=== PATIENT | female | born 1930 | race Caucasian/White ===

== ENCOUNTER 2018-02-11 15:31 | Inpatient (IN) | payer MEDICARE, OTHER ==
[2018-02-11 16:01] LABS: ADD MAN DIFF? NO
[2018-02-11 16:03] LABS: BASOPHILS % 0.4 % (0.0-2.0); EOSINOPHILS # 0.1 10^3/ul (0.0-0.5); EOSINOPHILS % 0.9 % (0.0-7.0); HEMATOCRIT 39.4 % (37.0-47.0); HEMOGLOBIN 12.8 g/dl (12.0-16.0); LYMPHOCYTES # 2.3 10^3/ul (0.8-2.9); MEAN CORPUSCULAR HEMOGLOBIN 28.6 pg (29.0-33.0); MEAN CORPUSCULAR HGB CONC 32.5 g/dl (32.0-37.0); MEAN CORPUSCULAR VOLUME 87.9 fl (82.0-101.0); MEAN PLATELET VOLUME 10.4 fl (7.4-10.4); MONOCYTE # 0.6 10^3/ul (0.3-0.9); MONOCYTES % 6.9 % (0.0-11.0); NEUTROPHILS % 66.4 % (39.0-77.0); PLATELET COUNT 281 10^3/UL (140-415); RED BLOOD COUNT 4.48 10^6/ul (4.20-5.40); RED CELL DISTRIBUTION WIDTH 14.5 % (11.5-14.5)
[2018-02-11 16:32] LABS: ANION GAP 13 (8-16); BLOOD UREA NITROGEN 14 mg/dl (7-20); CALCIUM 9.3 mg/dl (8.4-10.2); CARBON DIOXIDE 23 mmol/L (21-31); CHLORIDE 109 mmol/L (97-110); CREATININE 0.66 mg/dl (0.44-1.00); GLUCOSE 146 mg/dl (70-220); POTASSIUM 3.4 mmol/L (3.5-5.1); SODIUM 142 mmol/L (135-144)
[2018-02-11 16:44] LABS: TROPONIN-I 0.058 ng/ml (0.000-0.120)
[2018-02-11] MEDS: ONDANSETRON 4 MG INJ IV ×4 (17:23→23:34)
[2018-02-11] MEDS: FENTAnyl 50 MCG/ML VIAL IV (17:24)
[2018-02-11 17:44] LABS: B-TYPE NATRIURETIC PEPTIDE 746 PG/ML (0-450)
[2018-02-11] MEDS: IOHEXOL 100 ML ×2 (17:47→18:43)
[2018-02-11] MEDS: SOD CHLORIDE 0.9% 100 ML ×2 (17:47→18:43)
[2018-02-11 18:19] LABS: ETHANOL < 10.0 mg/dl
[2018-02-11] MEDS: morphine 4 MG/ML VIAL IV ×2 (19:11→22:36)
[2018-02-11] MEDS: CEFEPIME 2GM/50 ML (PMX) 50 ML IVPB (22:29)
[2018-02-11] MEDS ORDERED: ACETAMINOPHEN 325 MG TAB PO ×2 (22:30→23:30)
[2018-02-11] MEDS: DEXTROSE 5%-0.45% NACL 1,000 ML IV (22:46)
[2018-02-11] MEDS ORDERED: MAGNESIUM HYDROXIDE 30ML CUP PO (23:30)
[2018-02-11] MEDS ORDERED: BISACODYL (EC) 5 MG TAB PO (23:30)
[2018-02-11] MEDS ORDERED: NACL 0.9% 3 ML SYG IV (23:30)
[2018-02-11] MEDS ORDERED: VANCOMYCIN IV PER PHARMACY XX (23:30)
[2018-02-11] MEDS ORDERED: PROCHLORPERAZINE 10 MG INJ IV (23:30)
[2018-02-12] MEDS: POTASSIUM CHLORIDE (SR) 20 MEQ TAB PO (00:20)
[2018-02-12] MEDS: VANCOMYCIN 1 GM (PMX) 250 ML IVPB (00:20)
[2018-02-12] MEDS: ACCU-CHEK XX (02:00)
[2018-02-12] MEDS: morphine 4 MG/ML VIAL IV ×4 (03:35→22:04)
[2018-02-12] MEDS: LEVOFLOXACIN 750 MG TABLET PO (06:00)
[2018-02-12] MEDS: CEFEPIME 2GM/50 ML (PMX) 50 ML IV ×2 (06:02→14:00)
[2018-02-12] MEDS: HYDROCODONE/APAP (5/325) TAB PO (07:07)
[2018-02-12 07:10] LABS: ADD MAN DIFF? NO
[2018-02-12 07:15] LABS: WHITE BLOOD COUNT 11.2 10^3/ul (4.8-10.8)
[2018-02-12 07:15] LABS: BASOPHILS % 0.2 % (0.0-2.0); EOSINOPHILS # 0.1 10^3/ul (0.0-0.5); EOSINOPHILS % 0.4 % (0.0-7.0); HEMATOCRIT 38.8 % (37.0-47.0); HEMOGLOBIN 12.3 g/dl (12.0-16.0); LYMPHOCYTES # 1.8 10^3/ul (0.8-2.9); LYMPHOCYTES % 16.1 % (15.0-51.0); MEAN CORPUSCULAR HEMOGLOBIN 28.4 pg (29.0-33.0); MEAN CORPUSCULAR HGB CONC 31.7 g/dl (32.0-37.0); MEAN CORPUSCULAR VOLUME 89.6 fl (82.0-101.0); MEAN PLATELET VOLUME 10.5 fl (7.4-10.4); MONOCYTE # 0.7 10^3/ul (0.3-0.9); MONOCYTES % 6.6 % (0.0-11.0); NEUTROPHIL # 8.6 10^3/ul (1.6-7.5); NEUTROPHILS % 76.3 % (39.0-77.0); PLATELET COUNT 294 10^3/UL (140-415); RED BLOOD COUNT 4.33 10^6/ul (4.20-5.40); RED CELL DISTRIBUTION WIDTH 14.8 % (11.5-14.5)
[2018-02-12] MEDS: ONDANSETRON 4 MG INJ IV ×3 (07:42→22:03)
[2018-02-12] MEDS: INSULIN ASPART [NOVOLOG] 3 ML PEN SC ×4 (07:55→21:00)
[2018-02-12 08:09] LABS: ANION GAP 13 (8-16); BLOOD UREA NITROGEN 15 mg/dl (7-20); CARBON DIOXIDE 24 mmol/L (21-31); CHLORIDE 108 mmol/L (97-110); CREATININE 0.69 mg/dl (0.44-1.00); GLUCOSE 144 mg/dl (70-220); MAGNESIUM 1.6 mg/dl (1.7-2.5); PHOSPHORUS 4.5 mg/dl (2.5-4.9); POTASSIUM 3.6 mmol/L (3.5-5.1); SODIUM 141 mmol/L (135-144)
[2018-02-12] MEDS: ASPIRIN 81 MG TAB PO (08:54)
[2018-02-12] MEDS: LOSARTAN 50 MG TAB PO (08:54)
[2018-02-12] MEDS: AMLODIPINE 5 MG TAB PO (08:54)
[2018-02-12] MEDS: ESCITALOPRAM 10 MG TAB PO (08:54)
[2018-02-12] MEDS: ENOXAPARIN 40 MG/0.4 ML SYG SC (09:00)
[2018-02-12] MEDS: PREGABALIN 25 MG CAP PO ×2 (09:00→21:44)
[2018-02-12] MEDS: CARBIDOPA/LEVODOPA (25/250) TAB PO ×3 (12:16→21:00)
[2018-02-12] MEDS: MAGNESIUM SULFATE 2 GM/50 ML 50 ML IVPB (12:17)
[2018-02-12] MEDS: NYSTATIN 30 GM POWDER BTL TOP ×2 (13:30→21:46)
[2018-02-12] MEDS: ATORVASTATIN 10 MG TAB PO (21:00)
[2018-02-12] MEDS: MONTELUKAST 10 MG TAB PO (21:46)
[2018-02-12] MEDS: CEFEPIME 2GM/50 ML IVPB (22:03)
[2018-02-13] MEDS: VANCOMYCIN 750 MG in SOD CHLORIDE 0.9% 150 ML IVPB (01:37)
[2018-02-13] MEDS: ACCU-CHEK XX ×2 (02:56→23:10)
[2018-02-13] MEDS: INSULIN ASPART [NOVOLOG] 3 ML PEN SC ×4 (07:55→21:00)
[2018-02-13] MEDS: ESCITALOPRAM 10 MG TAB PO (08:27)
[2018-02-13] MEDS: CARBIDOPA/LEVODOPA (25/250) TAB PO ×3 (08:27→21:19)
[2018-02-13] MEDS: ASPIRIN 81 MG TAB PO (08:27)
[2018-02-13] MEDS: LOSARTAN 50 MG TAB PO (08:28)
[2018-02-13] MEDS: AMLODIPINE 5 MG TAB PO (08:29)
[2018-02-13] MEDS: ENOXAPARIN 40 MG/0.4 ML SYG SC (08:30)
[2018-02-13] MEDS: CEFEPIME 2GM/50 ML IVPB ×2 (08:33→21:19)
[2018-02-13] MEDS: NYSTATIN 30 GM POWDER BTL TOP ×2 (08:33→21:19)
[2018-02-13] MEDS: PREGABALIN 25 MG CAP PO ×2 (08:36→21:18)
[2018-02-13 11:07] LABS: ADD MAN DIFF? NO
[2018-02-13 11:13] LABS: BASOPHILS % 0.3 % (0.0-2.0); EOSINOPHILS # 0.1 10^3/ul (0.0-0.5); EOSINOPHILS % 1.3 % (0.0-7.0); HEMATOCRIT 34.2 % (37.0-47.0); HEMOGLOBIN 10.9 g/dl (12.0-16.0); LYMPHOCYTES # 0.7 10^3/ul (0.8-2.9); LYMPHOCYTES % 6.6 % (15.0-51.0); MEAN CORPUSCULAR HEMOGLOBIN 28.4 pg (29.0-33.0); MEAN CORPUSCULAR HGB CONC 31.9 g/dl (32.0-37.0); MEAN CORPUSCULAR VOLUME 89.1 fl (82.0-101.0); MEAN PLATELET VOLUME 10.4 fl (7.4-10.4); MONOCYTE # 0.4 10^3/ul (0.3-0.9); MONOCYTES % 4.1 % (0.0-11.0); NEUTROPHIL # 9.3 10^3/ul (1.6-7.5); NEUTROPHILS % 87.3 % (39.0-77.0); PLATELET COUNT 238 10^3/UL (140-415); RED BLOOD COUNT 3.84 10^6/ul (4.20-5.40)
[2018-02-13 11:13] LABS: WHITE BLOOD COUNT 10.7 10^3/ul (4.8-10.8)
[2018-02-13 11:32] LABS: ALANINE AMINOTRANSFERASE 20 IU/L (13-69); ALBUMIN 2.7 g/dl (3.3-4.9); ALBUMIN/GLOBULIN RATIO 1.03; ALKALINE PHOSPHATASE 61 IU/L (42-121); ANION GAP 11 (8-16); ASPARTATE AMINO TRANSFERASE 21 IU/L (15-46); BILIRUBIN,INDIRECT 0.3 mg/dl (0-1.1); BILIRUBIN,TOTAL 0.3 mg/dl (0.2-1.3); BLOOD UREA NITROGEN 17 mg/dl (7-20); CALCIUM 8.8 mg/dl (8.4-10.2); CARBON DIOXIDE 25 mmol/L (21-31); CHLORIDE 109 mmol/L (97-110); CREATININE 0.74 mg/dl (0.44-1.00); GLUCOSE 140 mg/dl (70-220); POTASSIUM 3.7 mmol/L (3.5-5.1); SODIUM 141 mmol/L (135-144); TOTAL PROTEIN 5.3 g/dl (6.1-8.1)
[2018-02-13] MEDS: ATORVASTATIN 10 MG TAB PO (21:17)
[2018-02-13] MEDS: MONTELUKAST 10 MG TAB PO (21:17)
[2018-02-13] MEDS: HYDROCODONE/APAP (5/325) TAB PO (21:27)
[2018-02-13] MEDS: ONDANSETRON 4 MG INJ IV (22:38)
[2018-02-13] MEDS ORDERED: HYDROCODONE/APAP (5/325) TAB PO (23:00)
[2018-02-13] MEDS ORDERED: DIPHENHYDRAMINE 25 MG CAP PO (23:00)
[2018-02-14] MEDS: VANCOMYCIN 750 MG in SOD CHLORIDE 0.9% 150 ML IVPB (01:55)
[2018-02-14] MEDS: LEVOFLOXACIN 750 MG TABLET PO (06:05)
[2018-02-14 06:33] LABS: ADD MAN DIFF? NO
[2018-02-14 06:34] LABS: BASOPHILS % 0.4 % (0.0-2.0); EOSINOPHILS # 0.1 10^3/ul (0.0-0.5); EOSINOPHILS % 1.9 % (0.0-7.0); HEMATOCRIT 32.2 % (37.0-47.0); HEMOGLOBIN 10.3 g/dl (12.0-16.0); LYMPHOCYTES # 1.2 10^3/ul (0.8-2.9); LYMPHOCYTES % 18.2 % (15.0-51.0); MEAN CORPUSCULAR HEMOGLOBIN 28.4 pg (29.0-33.0); MEAN CORPUSCULAR VOLUME 88.7 fl (82.0-101.0); MONOCYTE # 0.5 10^3/ul (0.3-0.9); MONOCYTES % 7.1 % (0.0-11.0); NEUTROPHIL # 4.9 10^3/ul (1.6-7.5); PLATELET COUNT 233 10^3/UL (140-415); RED BLOOD COUNT 3.63 10^6/ul (4.20-5.40); RED CELL DISTRIBUTION WIDTH 14.9 % (11.5-14.5)
[2018-02-14 06:34] LABS: WHITE BLOOD COUNT 6.8 10^3/ul (4.8-10.8)
[2018-02-14 07:03] LABS: ANION GAP 8 (8-16); BLOOD UREA NITROGEN 22 mg/dl (7-20); CALCIUM 8.6 mg/dl (8.4-10.2); CARBON DIOXIDE 24 mmol/L (21-31); CHLORIDE 111 mmol/L (97-110); CREATININE 0.69 mg/dl (0.44-1.00); GLUCOSE 112 mg/dl (70-220); PHOSPHORUS 3.1 mg/dl (2.5-4.9); POTASSIUM 3.7 mmol/L (3.5-5.1); SODIUM 139 mmol/L (135-144)
[2018-02-14] MEDS: INSULIN ASPART [NOVOLOG] 3 ML PEN SC ×4 (07:55→21:00)
[2018-02-14] MEDS: ASPIRIN 81 MG TAB PO (08:08)
[2018-02-14] MEDS: PREGABALIN 25 MG CAP PO ×2 (08:08→22:39)
[2018-02-14] MEDS: ESCITALOPRAM 10 MG TAB PO (08:08)
[2018-02-14] MEDS: CARBIDOPA/LEVODOPA (25/250) TAB PO ×3 (08:08→22:39)
[2018-02-14] MEDS: LOSARTAN 50 MG TAB PO (08:09)
[2018-02-14] MEDS: CEFEPIME 2GM/50 ML IVPB (08:09)
[2018-02-14] MEDS: AMLODIPINE 5 MG TAB PO (08:09)
[2018-02-14] MEDS: NYSTATIN 30 GM POWDER BTL TOP ×2 (08:09→21:55)
[2018-02-14] MEDS: ENOXAPARIN 40 MG/0.4 ML SYG SC (08:25)
[2018-02-14] MEDS ORDERED: VANCOMYCIN IV PER PHARMACY XX (09:30)
[2018-02-14] MEDS ORDERED: LABETALOL HCL 20MG INJ IV (09:30)
[2018-02-14] MEDS: DOCUSATE SODIUM 100 MG CAP PO (18:28)
[2018-02-14] MEDS: ONDANSETRON 4 MG INJ IV (21:48)
[2018-02-14] MEDS: ATORVASTATIN 10 MG TAB PO (22:38)
[2018-02-14] MEDS: MONTELUKAST 10 MG TAB PO (22:39)
[2018-02-15 00:27] LABS: VANCOMYCIN,TROUGH 9.2 ug/ml (10.0-20.0)
[2018-02-15] MEDS: VANCOMYCIN 1 GM 250 ML IVPB (00:53)
[2018-02-15] MEDS: ACCU-CHEK XX (02:00)
[2018-02-15] MEDS: HYDROmorphONE 0.5 MG/0.5 ML SYG IV (02:11)
[2018-02-15] MEDS: INSULIN ASPART [NOVOLOG] 3 ML PEN SC ×2 (07:55→11:50)
[2018-02-15] MEDS: ESCITALOPRAM 10 MG TAB PO (09:06)
[2018-02-15] MEDS: CARBIDOPA/LEVODOPA (25/250) TAB PO ×2 (09:06→13:20)
[2018-02-15] MEDS: LOSARTAN 50 MG TAB PO (09:06)
[2018-02-15] MEDS: PREGABALIN 25 MG CAP PO (09:06)
[2018-02-15] MEDS: AMLODIPINE 10 MG TAB PO (09:07)
[2018-02-15] MEDS: NYSTATIN 30 GM POWDER BTL TOP (09:07)
[2018-02-15] MEDS: ENOXAPARIN 40 MG/0.4 ML SYG SC (09:12)
[2018-02-15] MEDS: ONDANSETRON 4 MG INJ IV (09:58)
== END 2018-02-15 17:25 | disposition home or self-care (01) | DRG 180 ==
LOC: E/R 15:31 → TEL 22:11
DX: C34.90 Malignant neoplasm of unspecified part of unspecified bronchus or lung (principal); J18.9 Pneumonia, unspecified organism; J90 Pleural effusion, not elsewhere classified; C79.51 Secondary malignant neoplasm of bone; E78.5 Hyperlipidemia, unspecified; E11.40 Type 2 diabetes mellitus with diabetic neuropathy, unspecified; G31.83 Neurocognitive disorder with Lewy bodies; F02.80 Dementia in other diseases classified elsewhere, unspecified severity, without behavioral disturbance, psychotic disturbance, mood disturbance, and anxiety; I11.0 Hypertensive heart disease with heart failure; I50.9 Heart failure, unspecified; Z79.84 Long term (current) use of oral hypoglycemic drugs; Z79.82 Long term (current) use of aspirin; Z66 Do not resuscitate
CPT/HCPCS: 36415; 71045; 71275; 73060-50; 80048; 80053; 80202; 80307; 82962; 83036; 83605; 83735; 83880; 84100; 84484; 85025; 87040; 93005; 93306; 96374; 96375; 96376; 99285-25